=== PATIENT | male | born 2000 | race Hispanic/Latino ===

== ENCOUNTER 2024-11-09 09:26 | Emergency (ER) | payer SELFPAY ==
[2024-11-09] MEDS ORDERED: CEFAZOLIN 2 GM VIAL ONE (10:29)
[2024-11-09] MEDS ORDERED: Boostrix 0.5 ML (Tdap) VIAL (>/=7 yrs of age) ONE (10:29)
[2024-11-09] MEDS ORDERED: Bacitracin 1 PK ONE (13:16)
== END 2024-11-09 13:34 | disposition home or self-care (01) ==
LOC: ERS 09:26
DX: S92.501A Displaced unspecified fracture of right lesser toe(s), initial encounter for closed fracture (principal); F17.210 Nicotine dependence, cigarettes, uncomplicated; Z89.421 Acquired absence of other right toe(s); Z23 Encounter for immunization; W20.8XXA Other cause of strike by thrown, projected or falling object, initial encounter
CPT/HCPCS: 12002; 90471; 90715; 96374; J0665